=== PATIENT | male | born 1940 | race Caucasian/White ===

== ENCOUNTER 2017-07-20 14:26 | Inpatient (IN) | payer MEDICARE, BC ==
[2017-07-20 16:18] LABS: #Basophils 0.1 thou/uL (0.0-0.2); #Eosinphils 0.2 thou/uL (0.0-0.7); #Lymphocytes 0.3 thou/uL (1.20-3.40); #Monocytes 0.3 thou/uL (0.11-0.59); #Neutrophils 6.5 thou/uL (1.40-6.50); %Basophils 1.9 % (0.0-1.0); %Eosinophils 2.2 % (0.0-10.0); %Lymphocytes 4.5 % (21.0-51.0); Hematocrit 41.4 % (42.0-52.0); Mean Platelet Volume 6.9 fL (7.4-10.4); Red Blood Cell (RBC) Count 4.52 mill/uL (4.70-6.10); White Blood Cell (WBC) Count 7.5 thou/uL (4.8-10.8)
[2017-07-20 16:44] LABS: Troponin I 0.014 ng/mL (< 0.028)
[2017-07-20] MEDS ORDERED: Acetaminophen 325 MG TAB ONE ×2 (18:57→19:17)
[2017-07-20 19:26] LABS: ALT (SGPT) 31 U/L (8-55); AST (SGOT) 29 U/L (5-34); Alkaline Phosphatase 91 U/L (40-150); Anion Gap 15 mmol/L (10-20); BUN (Urea Nitrogen) 21 mg/dL (8.4-25.7); Bilirubin, Total 0.7 mg/dL (0.2-1.2); Calc. Creatinine Clearance 0 mL/min (70-130); Calcium 9.1 mg/dL (7.8-10.44); Carbon Dioxide 26 mmol/L (23-31); Chloride 98 mmol/L (98-107); Estimated GFR-MDRD 58; Globulin 2.9 g/dL (2.4-3.5); Protein, Total 6.9 g/dL (5.8-8.1)
[2017-07-20 19:39] LABS: Bilirubin Negative (Negative); Blood, Urine Negative (Negative); Glucose, Urine (Dipstick) Negative (Negative); Ketone, Urine Negative (Negative); Nitrite Negative (Negative); Protein, Urine (Dipstick) 100 mg/dL (Neg-Trace)
[2017-07-20 19:42] LABS: Bacteria/HPF None Seen HPF (None Seen); Hyaline Casts/LPF 0-3 HYALINE CAST LPF (0-3 Hyaline); Squamous Epithelial 0-3 HPF (0-3); WBC/HPF 0-3 HPF (0-3)
[2017-07-20 19:50] LABS: RBC/HPF 0-3 HPF (0-3)
[2017-07-20 20:37] LABS: PTT 38.5 SEC (22.9-36.1); Prothrombin Time 14.5 SEC (12.0-14.7)
[2017-07-20] MEDS ORDERED: Ibuprofen 800 MG TAB ONE (20:53)
--- NOTE | 2017-07-20 20:57 | RAD ---
PORTABLE CHEST: Date: 07-20-17 Provided Clinical History: Fever. FINDINGS: Comparison is made with the study dated 12-02-16. The cardiac silhouette appears prominent which is likely at least partially on the basis of portable technique. Vascular calcification is noted involving the aortic arch. There is no focal consolidation , pleural fluid or pneumothorax apparent. There is elevation of the right hemidiaphragm. IMPRESSION: No evidence for an acute cardiopulmonary process. POS: [facility]
[2017-07-20] MEDS ORDERED: Acetaminophen 325 MG TAB PO PRN (22:09)
[2017-07-20] MEDS ORDERED: Guaifenesin DM 100-10/5 ML UDCUP PO PRN (22:09)
--- NOTE | 2017-07-21 01:59 | HP ---
DATE OF ADMISSION: 07/20/2017 ADMITTING PHYSICIAN: Dr. Manuel Thornton. PRIMARY CARE PHYSICIAN: Unknown. CHIEF COMPLAINT: Fevers, chills. HISTORY OF PRESENT ILLNESS: The patient is a 77-year-old gentleman brought in for his because o f increased weakness and fevers. The symptoms started approximately 2 days ago. The patient's tempe rature has been as high as 103.9 degrees. The patient was instructed to come to the emergency depart ment for further workup. He does report chills with this fever, some weakness, diaphoresis. Denies cough, shortness of breath or congestion. REVIEW OF SYSTEMS: The following complete review of systems was negative, unless otherwise mentioned in the HPI or below: Constitutional: Weight loss or gain, sense of well-being, ability to conduct usual activities, exerc ise tolerance. Skin/Breast: Rash, itching, changes in hair growth or loss, nail changes, breast lumps, tenderness, swelling, nipple discharge. Eyes: Vision, double vision, tearing, blind spots, pain. ENT/Mouth: Headaches (location, time of onset, duration, precipitating factors), vertigo, lightheade dness, injury. Vision, double vision, tearing, blind spots, pain, nose bleeding, colds, obstruction, discharge, dental difficulties, gingival bleeding, dentures, neck stiffness, pain, tenderness, masses in thyroid or other areas. Cardiovascular: Precordial pain, substernal distress, palpitations, syncope, dyspnea on exertion, or thopnea, nocturnal paroxysmal dyspnea, edema, cyanosis, hypertension, heart murmurs, varicosities, ph lebitis, claudication. Respiratory: Pain, shortness of breath, wheezing, stridor, cough, hemoptysis, fever or night sweats. Gastrointestinal: Poor appetite, dysphagia, indigestion, abdominal pain, heartburn, eructation, naus ea, vomiting, hematemesis, jaundice, constipation, or diarrhea, abnormal stools (moni-colored, tarry, bloody, greasy, foul smelling), flatulence, hemorrhoids, recent changes in bowel habits. Genitourinary: Urgency, frequency, dysuria, nocturia, hematuria, polyuria, oliguria, unusual (or eladio nge in) color of urine, stones, hesitancy, change in size of stream, dribbling, acute retention or in continence, libido, potency. Musculoskeletal: Pain, swelling, redness or heat of muscles or joints, limitation, of motion, muscul ar weakness, atrophy, cramps. Neurologic/Psychiatric: Convulsions, paralyses, tremor, incoordination, paresthesias, difficulties w ith memory of speech, sensory or motor disturbances, or muscular coordination (ataxia, tremor), emoti onal problems, anxiety, depression, previous psychiatric care, unusual perceptions, hallucinations. Allergy/Immunologic: Skin rash, anemia, bleeding tendency, polydipsia, polyuria, intolerance to heat or cold. PAST MEDICAL HISTORY: Significant for coronary artery disease, myalgias, osteomyelitis, neuropathy. PAST SURGICAL HISTORY: Positive for a PCI with cardiac stents x5, amputation to right great toe, sandrita endectomy, hernia repair, lung surgery. PSYCHIATRIC HISTORY: No previous psychiatric history. SOCIAL HISTORY: The patient is a former tobacco user, stopped about 10 years ago. Denies alcohol, d enies illicit drugs. Lives with his . FAMILY HISTORY: Reviewed and is noncontributory to this case. HOME MEDICATIONS: Include; 1. Prednisone 20 mg q. day. 2. IgG and IM injection monthly. 3. Azathioprine 100 mg q. day. 4. Metformin 1000 mg b.i.d. 4. Lisinopril/hydrochlorothiazide 10/12.5 mg q. day. DRUG ALLERGIES: ADHESIVE TAPE and PENICILLINS. PHYSICAL EXAMINATION: VITAL SIGNS: Last temperature is 104, blood pressure 180/97, pulse 139, respirations 18, O2 sats 93% on room air. GENERAL: The patient appears nontoxic, comfortable, pleasant, alert and oriented x3. HEAD: Normocephalic, atraumatic. EYES: PERRL. Extraocular muscles are intact. No nystagmus. ENT: External ear exam normal. Pharynx exam normal. Mouth exam normal. Mucous membranes moist, pi nk. NECK: Trachea midline. Full range of motion, supple. CHEST: No rhonchi, no wheezes. CARDIOVASCULAR: Sinus tachycardia. Grade 2/6 systolic murmur. ABDOMEN: Nontender, nondistended. No rebound, no guarding. EXTREMITIES: No clubbing. There are venous stasis changes bilaterally and a missing right great toe . NEUROLOGIC: Speech normal. Alert and oriented x3. LABORATORY DATA AND IMAGES: Chest x-ray shows no evidence for an acute cardiopulmonary process. ESR sed rate is 20. PTT 38.5, INR 1.1, PT 14.5, CRP 18.79. Influenza A and B negative, group A strep is negative. Urina lysis, urine yellow, clear, negative for leukocytes, nitrites, 100 protein, negative bacteria. CMP: Sodium 135, potassium 4.4, chloride 98, BUN 21, creatinine 1.22, glucose 238, calcium 9.1, AST 29, A LT 31, lactic acid 2.0, CK-MB 0.7, troponin I 0.014. CBC: White count 7.5, hemoglobin 14.1, hematoc rit 41.4, platelets 158,000. ASSESSMENT: 1. Fever, weakness. 1. Viral syndrome. 2. Diabetes, type 2. 3. Coronary artery disease. PLAN: The patient will be admitted to telemetry observation because of his tachycardia. DVT prophyl axis will be with Lovenox. The patient will be provided with supportive measures as his condition ap pears to be viral at this time. We will monitor him for any untoward events during his stay.
[2017-07-21 03:26] VITALS: BMI 26.0
[2017-07-21 04:56] LABS: Anion Gap 13 mmol/L (10-20); BUN (Urea Nitrogen) 18 mg/dL (8.4-25.7); Calc. Creatinine Clearance 78 mL/min (70-130); Calcium 9.2 mg/dL (7.8-10.44); Carbon Dioxide 27 mmol/L (23-31); Chloride 104 mmol/L (98-107); Estimated GFR-MDRD 68
[2017-07-21 05:40] LABS: Band 6 % (5-11); Hematocrit 38.1 % (42.0-52.0); Mean Platelet Volume 7.3 fL (7.4-10.4); Neutrophil 70 % (42-75); Reactive Lymphocytes 1 % (0-10); Red Blood Cell (RBC) Count 4.16 mill/uL (4.70-6.10); White Blood Cell (WBC) Count 7.4 thou/uL (4.8-10.8)
[2017-07-21] MEDS: Sodium Chloride 0.9% 1,000 ML IV SCH ×2 (07:25→11:48)
--- NOTE | 2017-07-21 08:05 | PDOC.PN ---
- Subjective Encounter Start Date: 07/21/17 Encounter Start Time: 10:20 Subjective: Patient feeling fine now. Fevers tend to spike around 1700 each day and -: getting worse. On steroids, Imuran, and IVIG. No pain or focal infectious -: signs. - Objective MAR Reviewed: Yes Vital Signs & Weight: Vital Signs (12 hours) Temp Pulse Resp BP Pulse Ox 07/21/17 04:00 97.7 F 73 18 96/46 L 97 07/20/17 22:58 100.0 F H 113 H 18 110/54 L 97 Weight Weight 202 lb 14.4 oz Result Diagrams: 07/21/17 04:14 07/21/17 04:14 Phys Exam - Physical Examination Constitutional: NAD HEENT: moist MMs Respiratory: no wheezing, no rales, no rhonchi Cardiovascular: RRR, no significant murmur Gastrointestinal: soft, non-tender, positive bowel sounds Neurological: non-focal, moves all 4 limbs Psychiatric: normal affect, A&O x 3 Dx/Plan (1) Viral syndrome Status: Acute (2) SIRS (systemic inflammatory response syndrome) Code(s): R65.10 - SIRS OF NON-INFECTIOUS ORIGIN W/O ACUTE ORGAN DYSFUNCTION Status: Resolved (3) Weakness Code(s): R53.1 - WEAKNESS Status: Acute (4) CAD (coronary artery disease) Code(s): I25.10 - ATHSCL HEART DISEASE OF [place] CORONARY ARTERY W/O ANG PCTRS Status: Chronic (5) Diabetes Code(s): E11.9 - TYPE 2 DIABETES MELLITUS WITHOUT COMPLICATIONS Status: Chronic - Plan cont current plan of care Will have Dr. Alfaro evaluate and determine if abx are warrented vs. just -: fever control with his hx of immunosuppression and previous osteomyelitis. * . - Discharge Day Encounter end time: 10:50
[2017-07-21] MEDS: Pregabalin 75 MG CAP PO SCH ×2 (08:45→21:01)
[2017-07-21] MEDS: metFORMIN 500 MG TAB PO SCH ×2 (08:45→16:22)
[2017-07-21] MEDS: Enoxaparin Sodium 40 MG/0.4 ML SYRINGE SC SCH (08:46)
[2017-07-21] MEDS ORDERED: FLU VACC TS2017-18 (>65YR) 0.5 ML SYRINGE IM ONE (09:00)
[2017-07-21] MEDS ORDERED: Chloraseptic Spray 180 ml Bottle PO PRN (18:58)
--- NOTE | 2017-07-21 20:30 | CON ---
DATE OF CONSULTATION: 07/21/2017 REASON FOR CONSULTATION: Fever. HISTORY OF PRESENT ILLNESS: A 77-year-old known to me from [facility] who has a history of coronary artery disease with bypass graft surgery and peripheral vascular disease with stenting of lower extremities as well as type 2 diabetes mellitus who was treated for L S spine diskitis, osteomyelitis and epidural phlegmon in December of this year. The patient improved and pain completely resolved; however, at the end of the treatment, he developed progressively worsening weakness in lower extremities and lost the ability to ambulate because of weakness. He also had quit e prominent paresthesias in upper and lower extremities. 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 The patient was treated with immunoglobulin and now is on Imuran with a tapering dose of prednisone and as a consequence of the t reatment, he has experienced marked improvement in his strength and now is able to stand up and ambul ate with assistance of a walker. Over the past 3 days, the patient has developed fever, progressivel y worsening temperature elevation, but no headaches, no visual symptoms, sore throat, odynophagia, dy sphagia. No cough or sputum production or chest pain. No abdominal pain, diarrhea or genitourinary symptoms. No joint symptoms. No change in neurological symptoms. 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 ALLERGIES: PENICILLIN. MEDICATIONS: Prednisone, Imuran, and currently enoxaparin, pregabalin. He received one dose of vanc omycin. SOCIAL HISTORY: Former smoker, lives in [place]. . FAMILY HISTORY: Noncontributory. PHYSICAL EXAMINATION: VITAL SIGNS: T-max 100, is currently 97.8, blood pressure 104/50, pulse 71, respirations 18, O2 sat 100%. SKIN: Shows the findings consistent with stasis dermatitis in lower extremities hyperpigmentation ar eas. Peripheral IV access. No Parker catheter. No lymphadenopathy. HEENT: Ocular movements are conjugate. Oral cavity normal. NECK: Supple. LUNGS: With symmetric clear breath sounds. HEART: S1, S2. Regular rate without murmurs. ABDOMEN: Soft. Not distended or tender. EXTREMITIES: He is much more stronger in the lower extremities compared with when I saw him last leonel e in the office a few months ago. Pulses are 1+ in dorsalis pedis. NEUROLOGIC: Cognitive function appears to be intact. LABORATORY DATA: Urinalysis with 100 protein, white cell count 7.5 and 7.4, hemoglobin 12.8, platele ts 129,000, normal differential now, 87% neutrophils on arrival, INR 1.1, sodium 140, creatinine 1.06 . Liver profile normal. Albumin 4.0. Microbiology: We have a negative influenza screen. Blood cu ltures thus far negative. Chest x-ray with no infiltrates. ASSESSMENT: 1. Coronary artery disease with bypass graft surgery. 2. Diabetes type 2. 3. Chronic inflammatory demyelinating polyneuropathy, on immunosuppressive agents. 4. New onset of fever. DISCUSSION: In view of the immunosuppression, need to rule out bacteremia. The patient has been giv en vancomycin and blood cultures are yet pending. Submit a respiratory virus PCR panel and cryptococ cus antigen, CMV, DNA, PCR. If blood cultures are negative by tomorrow, then consider discharge plan hetal with followup in the outpatient setting.
[2017-07-21] MEDS ORDERED: [UNRECOGNIZED DRUG - OTHER] PO SCH (21:00)
[2017-07-21] MEDS: Ascorbic Acid 500 mg Chewable Tablet PO SCH (21:02)
[2017-07-21] MEDS: Ubidecarenone 50 MG CAP PO SCH (21:09)
--- NOTE | 2017-07-22 07:14 | PDOC.PN ---
- Subjective Encounter Start Date: 07/22/17 Encounter Start Time: 08:20 Subjective: No fever. No cough. No pain. No chills. - Objective MAR Reviewed: Yes Vital Signs & Weight: Vital Signs (12 hours) Temp Pulse Resp BP Pulse Ox 07/22/17 04:00 98.9 F 98 20 127/66 93 L 07/22/17 00:00 98.7 F 94 18 124/54 L 95 Weight Weight 202 lb 14.4 oz Result Diagrams: 07/21/17 04:14 07/21/17 04:14 Phys Exam - Physical Examination Constitutional: NAD HEENT: moist MMs Respiratory: no wheezing, no rales, no rhonchi, clear to auscultation bilateral Cardiovascular: RRR, no significant murmur Gastrointestinal: soft, positive bowel sounds Neurological: non-focal, moves all 4 limbs Psychiatric: normal affect, A&O x 3 Dx/Plan (1) Viral syndrome Status: Resolved (2) SIRS (systemic inflammatory response syndrome) Code(s): R65.10 - SIRS OF NON-INFECTIOUS ORIGIN W/O ACUTE ORGAN DYSFUNCTION Status: Resolved (3) Weakness Code(s): R53.1 - WEAKNESS Status: Resolved (4) CAD (coronary artery disease) Code(s): I25.10 - ATHSCL HEART DISEASE OF [place] CORONARY ARTERY W/O ANG PCTRS Status: Chronic (5) Diabetes Code(s): E11.9 - TYPE 2 DIABETES MELLITUS WITHOUT COMPLICATIONS Status: Chronic - Plan cont current plan of care cultures negative to date, no further fever, ok to d/c home without -: antibiotics at this point, follow up with PCP in the next week, continue -: with treatments from Dr. Preston. * . - Discharge Day Encounter end time: 08:40
[2017-07-22 07:38] VITALS: BP 119/67; TEMP 98.6
[2017-07-22] MEDS: metFORMIN 500 MG TAB PO SCH (08:36)
[2017-07-22] MEDS: Pregabalin 75 MG CAP PO SCH (08:36)
[2017-07-22] MEDS: Enoxaparin Sodium 40 MG/0.4 ML SYRINGE SC SCH ×2 (08:36→08:42)
[2017-07-22] MEDS: Ascorbic Acid 500 mg Chewable Tablet PO SCH (08:37)
[2017-07-22] MEDS: Ubidecarenone 50 MG CAP PO SCH (08:38)
[2017-07-22] MEDS ORDERED: Vit A,C & E/Lutein/Minerals Tablet PO SCH (09:00)
[2017-07-22] MEDS ORDERED: Lisinopril/Hydrochlorothiazide 10 mg/12.5 mg Tablet PO SCH (09:00)
[2017-07-22] MEDS ORDERED: LECITHIN 1200 MG PO SCH (09:00)
[2017-07-22] MEDS ORDERED: Loratadine/Pseudoephedrine 10/240 mg Tablet PO SCH (09:00)
[2017-07-22] MEDS ORDERED: Lactinex Tablet PO SCH (09:00)
[2017-07-22] MEDS ORDERED: Vitami E (Dl,Tocopheryl Acet) 400 UNITS CAP PO SCH (09:00)
--- NOTE | 2017-07-22 13:25 | DIS ---
PRIMARY CARE PHYSICIAN: Louie Bui DIAGNOSES ON ADMISSION: 1. Fever. 2. Viral syndrome. 3. Diabetes mellitus type 2. 4. Coronary artery disease. DIAGNOSES ON DISCHARGE: 1. Viral syndrome, resolved. 2. Systemic inflammatory response syndrome, resolved. 3. Immunosuppression from medications. 4. Diabetes mellitus type 2. 5. Coronary artery disease. PROCEDURES: None. CONSULTATIONS: Infectious Disease, Dr. Alfaro. PERTINENT LABORATORY: Normal white blood cell count, a normal basic metabolic panel, elevated C-reac tive protein of 18, normal lactic acid, blood and urine cultures negative to date. HOSPITAL COURSE: This is a 77-year-old white male with a history of neuropathy treated by Dr. Caraballo f all with immunosuppressants azathioprine, prednisone and also receiving IVIG injections. He also has a history of osteomyelitis of the spine 8 months ago, treated by Dr. Alfaro. The patient developed 3 days of fever. Fevers only developed in the evening, would resolve with Tylenol until the day of ad mission when it persisted with rigors and temperatures up to 104. The patient came in, was very tach ycardic, he was in systemic inflammatory response without any specific source of infection determined . He had blood cultures and urine culture drawn. He did have a single dose of vancomycin in the [place] [facility] and was put observation in the hospital. The patient had no further fevers in the hospit al. Dr. Alfaro was consulted secondary to the patient's immunosuppressed status. He recommended a CM V viral pathogens panels which are still pending. No antibiotics at this point given the patient's l ack of fever and negative cultures, those far. He is now stable for discharge home. DISCHARGE MANAGEMENT: Discharged home. Follow up with primary care physician in [address] Caraballo for continued treatment of his neuropathy. ACTIVITY: As tolerated. DIET: Diabetic, low sodium diet. DISCHARGE MEDICATIONS: The patient is to resume his home medications. 1. Glucosamine 1500 mg twice a day. 2. Lactobacillus combination 1 cap daily. 3. Lecithin 1200 mg daily. 4. Lisinopril/hydrochlorothiazide 1 tablet daily. 5. Claritin-D 1 tablet daily. 6. Phenol spray as needed. 7. Lyrica 75 mg twice a day. 8. Coenzyme Q10 100 mg twice a day. 9. Ocuvite soft gel 1 cap daily. 10. Vitamin E 400 mg daily. 11. Metformin 1000 mg twice a day. 12. Vitamin C 1000 mg twice a day. 13. Vitamin D3 500 units twice a day. 14. Azathioprine 100 mg daily. 15. Prednisone 20 mg daily.
--- NOTE | 2017-08-19 14:53 | EKG ---
Test Reason : TACHY
== END 2017-07-22 10:38 | disposition home or self-care (01) | DRG 864 ==
LOC: ERS 14:26 → ERHOLD 20:20 → IMCU/EMU 22:57
PROVIDERS: ADMIT Internal Medicine Addiction Medicine; ATTEND Internal Medicine Addiction Medicine
DX: R50.9 Fever, unspecified (principal); R65.10 Systemic inflammatory response syndrome (SIRS) of non-infectious origin without acute organ dysfunction; E11.9 Type 2 diabetes mellitus without complications; G61.81 Chronic inflammatory demyelinating polyneuritis; B34.9 Viral infection, unspecified; R00.0 Tachycardia, unspecified; I25.10 Atherosclerotic heart disease of native coronary artery without angina pectoris; Z91.09 Other allergy status, other than to drugs and biological substances; Z89.411 Acquired absence of right great toe; Z88.0 Allergy status to penicillin; Z87.891 Personal history of nicotine dependence; T50.905A Adverse effect of unspecified drugs, medicaments and biological substances, initial encounter
CPT/HCPCS: 36415; 71010; 80048; 80053; 81003; 81015; 82553; 83605; 84484; 85007; 85025; 85027; 85610; 85652; 85730; 86140; 87040; 87081; 87086; 87430; 87497; 87633; 90471; 90682; 93005; 96365; 96366; G0008; J3370; Q2036